=== PATIENT | male | born 1985 | race Caucasian/White ===

== ENCOUNTER 2016-12-04 20:09 | Emergency (ER) | payer OTHER ==
[~2016-12-04] VITALS: Ht 170.2 cm; Wt 59.1 kg
[2016-12-04] MEDS ORDERED: CLINDAMYCIN 150 MG CAP PO ONE (22:00)
[2016-12-04] MEDS ORDERED: traMADol 50 MG TAB (BULK 4 TAB ED) PO ONE (22:00)
[2016-12-04 22:06] VITALS: BP 123/80
[2016-12-04] MEDS ORDERED: CLEO300C2 PO (22:08)
[2016-12-04] MEDS ORDERED: ULTR50TA8 PO (22:08)
== END 2016-12-04 22:13 | disposition home or self-care (01) ==
LOC: M ED 20:09
DX: L03.113 Cellulitis of right upper limb (principal); F17.210 Nicotine dependence, cigarettes, uncomplicated

== ENCOUNTER 2023-08-27 09:19 | Emergency (ER) | payer OTHER ==
[~2023-08-27] VITALS: Ht 172.7 cm; Wt 54.5 kg
[~2023-08-27 09:19] MED LIST: CLEO300C2 PO; ULTR50TA8 PO
[2023-08-27] MEDS: ACETAMINOPHEN TAB 650MG DOSE (2X325MG) PO ONE (10:42)
[2023-08-27] MEDS: KETOROLAC 30 MG/ML 1ML VIAL IM ONE (10:43)
[2023-08-27] MEDS ORDERED: METH-1165 PO (11:41)
[2023-08-27] MEDS ORDERED: KETO10TAB PO (11:41)
[2023-08-27 11:51] VITALS: BP 102/61; TEMP 97.8; O2SAT 100
== END 2023-08-27 11:53 | disposition home or self-care (01) ==
LOC: M ED 09:48
DX: S39.012A Strain of muscle, fascia and tendon of lower back, initial encounter (principal); Y92.9 Unspecified place or not applicable; Y93.9 Activity, unspecified; Y99.9 Unspecified external cause status; F17.210 Nicotine dependence, cigarettes, uncomplicated; Z79.899 Other long term (current) drug therapy
CPT/HCPCS: 96374; 99283; J1885